=== PATIENT | male | born 1990 | race African-American/Black ===

== ENCOUNTER 2022-05-13 07:56 | Emergency (ER) | payer SELFPAY ==
[2022-05-13] MEDS ORDERED: Dexamethasone 10 MG/ML VIAL ONE (08:39)
== END 2022-05-13 08:38 | disposition home or self-care (01) ==
LOC: CSHERS 07:56
DX: J02.8 Acute pharyngitis due to other specified organisms (principal)
CPT/HCPCS: 87081; 87430; 99283; J1100